=== PATIENT | male | born 1955 | race Caucasian/White ===

== ENCOUNTER 2020-07-05 06:37 | Day surgery (SDC) | payer OTHER, SELFPAY ==
[~2020-07-05] VITALS: Ht 182.9 cm; Wt 95.3 kg
[2020-07-05] MEDS ORDERED: MIDAZOLAM 5 MG/5 ML VIAL ONE (08:40)
[2020-07-05] MEDS ORDERED: LIDOCAINE 2% 100 MG/5 ML UJET TP ONE ×2 (08:40→09:10)
[2020-07-05] MEDS ORDERED: fentaNYL citrate 0.05 MG/ML VIAL ONE (08:40)
[2020-07-05] MEDS ORDERED: KETOROLAC 60 MG/2 ML VIAL IM ONE (08:56)
[2020-07-05] MEDS ORDERED: KETOROLAC 30 MG/ML VIAL IM ONE (09:10)
== END 2020-07-05 09:50 | disposition home or self-care (01) ==
LOC: MDS 06:37
PROVIDERS: ATTEND Internal Medicine Gastroenterology
DX: Z12.11 Encounter for screening for malignant neoplasm of colon (principal); D12.3 Benign neoplasm of transverse colon; I25.2 Old myocardial infarction; Z79.899 Other long term (current) drug therapy; Z90.49 Acquired absence of other specified parts of digestive tract
CPT/HCPCS: 45385; J1885; J3010; U0003; J2250